=== PATIENT | male | born 2000 | race Caucasian/White ===

== ENCOUNTER 2024-01-09 21:47 | Emergency (ER) | payer OTHER ==
--- NOTE | 2024-01-10 00:23 | ER ---
Nurse's Notes [facility] Name: Jaden Munoz Age: 23 yrs Sex: Male : 2000 Arrival Date: 01/09/2024 Time: 21:47 Bed 18 Private MD: Diagnosis: Contusion of right elbow Presentation: 01/08 22:15 Chief complaint: Patient states: right forearm/elbow pain of 8 with abrasion,onset pf1 2030, S/P fall when jumping onto a wooden platform, then fell back onto right arm. Patient denies any head injury. Coronavirus screen: Vaccine status: Patient reports receiving the 2nd dose of the covid vaccine. Client denies travel out of the [place] in the last 14 days. At this time, the client does not indicate any symptoms associated with coronavirus-19. Ebola Screen: Patient negative for fever greater than or equal to 101.5 degrees Fahrenheit, and additional compatible Ebola Virus Disease symptoms. Initial Sepsis Screen: Does the patient meet any 2 criteria? No. Patient's initial sepsis screen is negative. Does the patient have a suspected source of infection? No. Patient's initial sepsis screen is negative. Risk Assessment: Do you want to hurt yourself or someone else? Patient reports no desire to harm self or others. Onset of symptoms was January 09, 2024 at 20:30. 22:15 Method Of Arrival: Ambulatory pf1 22:15 Acuity: AARON 4 pf1 Triage Assessment: 22:22 General: Appears in no apparent distress. comfortable, well groomed, well developed, pf1 Behavior is calm, cooperative, appropriate for age, quiet. Pain: Complains of pain in right arm. Derm: Reports abrasion to right forearm. Musculoskeletal: Reports pain in right arm. 23:00 Injury Description: Abrasion sustained to right arm. jw7 Historical: - Allergies: 22:20 No Known Allergies; pf1 - PMHx: 22:20 Heart murmur; pf1 - PSHx: 22:20 None; pf1 - Immunization history:: Adult Immunizations up to date, Client reports receiving the 2nd dose of the Covid vaccine, Last tetanus immunization: < 5 years ago Flu vaccine is not up to date. - Infectious Disease History:: Denies. - Social history:: Smoking status: Patient denies any tobacco usage or history of. Patient uses alcohol, occasionally. Patient/guardian denies using street drugs. - Family history:: not pertinent. Screenin:00 [facility] ED Fall Risk Assessment (Adult) History of falling in the last 3 months, jw7 including since admission No falls in past 3 months (0 pts) Confusion or Disorientation No (0 pts) Intoxicated or Sedated No (0 pts) Impaired Gait No (0 pts) Mobility Assist Device Used No (0 pt) Altered Elimination No (0 pt) Score/Fall Risk Level 0 - 2 = Low Risk Oriented to surroundings, Maintained a safe environment, Educated pt \T\ family on fall prevention, incl call for assistance when getting out of bed. Abuse screen: Denies threats or abuse. Denies injuries from another. Nutritional screening: No deficits noted. Tuberculosis screening: No symptoms or risk factors identified. Assessment: 23:00 General: Appears in no apparent distress. comfortable, Behavior is calm, cooperative. jw7 23:00 Pain: Complains of pain in right arm Pain does not radiate. Pain currently is 5 out of jw7 10 on a pain scale. Quality of pain is described as throbbing, Pain began suddenly, Is continuous. Neuro: Level of Consciousness is awake, alert, obeys commands, Oriented to person, place, time, situation. Cardiovascular: Heart tones S1 S2 present Capillary refill < 3 seconds Clubbing of nail beds is absent JVD is absent Patient's skin is warm and dry. Respiratory: Airway is patent Trachea midline Respiratory effort is even, unlabored, Respiratory pattern is regular, symmetrical. GI: Abdomen is flat, non-distended, Bowel sounds present X 4 quads. Abd is soft and non tender X 4 quads. : No deficits noted. No signs and/or symptoms were reported regarding the genitourinary system. EENT: No deficits noted. No signs and/or symptoms were reported regarding the EENT system. Derm: Skin is healthy with good turgor, Skin is dry, Skin is normal, Skin temperature is warm Wound noted Other: abrasion noted to right elbow. Musculoskeletal: Circulation, motion, and sensation intact. Range of motion: intact in all extremities. 01/09 00:32 Reassessment: Patient appears in no apparent distress at this time. No changes from jw7 previously documented assessment. Patient and/or family updated on plan of care and expected duration. Pain level reassessed. Patient is alert, oriented x 3, equal unlabored respirations, skin warm/dry/pink. Vital Signs: 01/08 22:15 BP 133 / 76; Pulse 73; Resp 16; Temp 97.9; Pulse Ox 99% on R/A; Weight 80.74 kg; Height pf1 5 ft. 10 in. ; Pain 04/10; 01/09 00:00 BP 125 / 70; Pulse 50; Resp 16 S; Pulse Ox 98% on R/A; jw7 00:32 BP 120 / 68; Pulse 51; Resp 16 S; Pulse Ox 99% on R/A; jw7 01/08 22:15 Body Mass Index 25.54 (80.74 kg, 177.8 cm) pf1 01/08 22:15 Pain Scale: Adult pf1 ED Course: 01/08 21:52 Patient arrived in ED. gm2 21:53 Maximino Negro MD is Attending Physician. rt 22:20 Triage completed. pf1 22:22 Arm band placed on right wrist. pf1 22:52 Eloisa Calderón RN is Primary Nurse. jw7 23:00 Patient has correct armband on for positive identification. Bed in low position. Call jw7 light in reach. Provided Education on: Use of Call Light. 23:28 Elbow Right 3 View XRAY In Process Unspecified. EDMS 01/09 00:33 No provider procedures requiring assistance completed. Patient did not have IV access jw7 during this emergency room visit. Administered Medications: No medications were administered Medication: 00:33 VIS not applicable for this client. jw7 Outcome: 00:22 Discharge ordered by . rt 00:33 Discharged to home ambulatory, jw7 00:33 Condition: stable 00:33 Discharge instructions given to patient, Instructed on discharge instructions, follow up and referral plans. Demonstrated understanding of instructions, follow-up care, 00:33 Patient left the ED. jw7 Signatures: Dispatcher [employer] EDKS Eloisa Calderón RN RN jw7 Maximino Negro MD MD rt Monica aPulino RN RN pf1 Malathi Edmondson gm2
--- NOTE | 2024-01-10 00:23 | EDPHYS ---
Physician Documentation [facility] Name: Jaden Munoz Age: 23 yrs Sex: Male : 2000 Arrival Date: 01/09/2024 Time: 21:47 Bed 18 Private MD: ED Physician Maximino Negro HPI: 01/09 02:06 This 23 yrs old Male presents to ER via Ambulatory with complaints of Elbow Injury. rt 02:06 Patient presents to the ED with an injury to the right elbow. Patient states that he rt jumped, fell backwards, having direct blow onto the elbow. Does have an abrasion at that area, reports mild swelling, tenderness. Denies other injury, acute complaints, symptoms are moderate in severity, no other aggravating or alleviating factors.. Historical: - Allergies: 01/08 22:20 No Known Allergies; pf1 - PMHx: 22:20 Heart murmur; pf1 - PSHx: 22:20 None; pf1 - Immunization history:: Adult Immunizations up to date, Client reports receiving the 2nd dose of the Covid vaccine, Last tetanus immunization: < 5 years ago Flu vaccine is not up to date. - Infectious Disease History:: Denies. - Social history:: Smoking status: Patient denies any tobacco usage or history of. Patient uses alcohol, occasionally. Patient/guardian denies using street drugs. - Family history:: not pertinent. ROS: 01/09 02:06 Constitutional: Negative for fever, chills, and weight loss, Neck: Negative for injury, rt pain, and swelling, Cardiovascular: Negative for chest pain, palpitations, and edema, Respiratory: Negative for shortness of breath, cough, wheezing, and pleuritic chest pain, Abdomen/GI: Negative for abdominal pain, nausea, vomiting, diarrhea, and constipation, Skin: Negative for injury, rash, and discoloration, Neuro: Negative for headache, weakness, numbness, tingling, and seizure, MS/extremity: Positive for abrasion, contusion, pain, Exam: 02:06 Constitutional: This is a well developed, well nourished patient who is awake, alert, rt and in no acute distress. Head/Face: Normocephalic, atraumatic. Chest/axilla: Normal chest wall appearance and motion. Nontender with no deformity. No lesions are appreciated. Cardiovascular: Regular rate and rhythm with a normal S1 and S2. No gallops, murmurs, or rubs. Normal PMI, no JVD. No pulse deficits. Respiratory: Lungs have equal breath sounds bilaterally, clear to auscultation and percussion. No rales, rhonchi or wheezes noted. No increased work of breathing, no retractions or nasal flaring. Abdomen/GI: Soft, non-tender, with normal bowel sounds. No distension or tympany. No guarding or rebound. No evidence of tenderness throughout. Skin: Warm, dry with normal turgor. Normal color with no rashes, no lesions, and no evidence of cellulitis. Neuro: Awake and alert, GCS 15, oriented to person, place, time, and situation. Cranial nerves II-XII grossly intact. Motor strength 5/5 in all extremities. Sensory grossly intact. Cerebellar exam normal. Normal gait. 02:06 Musculoskeletal/extremity: Mild bruising, abrasion noted to the right proximal forearm, full range of motion of the elbow. Pulses, motor, sensation intact. Vital Signs: 01/08 22:15 BP 133 / 76; Pulse 73; Resp 16; Temp 97.9; Pulse Ox 99% on R/A; Weight 80.74 kg; Height pf1 5 ft. 10 in. ; Pain 04/10; 01/09 00:00 BP 125 / 70; Pulse 50; Resp 16 S; Pulse Ox 98% on R/A; jw7 00:32 BP 120 / 68; Pulse 51; Resp 16 S; Pulse Ox 99% on R/A; jw7 01/08 22:15 Body Mass Index 25.54 (80.74 kg, 177.8 cm) pf1 01/08 22:15 Pain Scale: Adult pf1 MDM: 01/08 22:57 Patient medically screened. rt 01/09 02:06 Differential diagnosis: Fracture, contusion, abrasion. Data reviewed: vital signs, rt nurses notes, radiologic studies. Independent interpretation of the following test(s) in the Emergency Department X-Ray: My interpretation is No fracture seen on interpretation of x-ray images. Counseling: I had a detailed discussion with the patient and/or guardian regarding the historical points, exam findings, and any diagnostic results supporting the discharge/admit diagnosis, radiology results, the need for outpatient follow up. 01/08 23:03 Order name: Elbow Right 3 View XRAY rt Administered Medications: No medications were administered Disposition Summary: 01/10/24 00:22 Discharge Ordered Notes: Location: Home rt Problem: new rt Symptoms: have improved rt Condition: Stable rt Diagnosis - Contusion of right elbow rt Followup: rt - With: Private Physician - When: 5 - 6 days - Reason: Discharge Instructions: - Discharge Summary Sheet rt - Contusion rt Forms: - Medication Reconciliation Form rt - Antibiotic Education rt - Prescription Opioid Use rt - Patient Portal Instructions rt - Leadership Thank You Letter rt Signatures: Dispatcher [employer] Maximino Reyez MD MD rt Monica Paulino RN RN pf1
[2024-01-10 00:51] VITALS: BP 120/68; TEMP 97.9; O2SAT 99
--- NOTE | 2024-01-12 11:40 | RAD REPORT ---
EXAM DESCRIPTION: Elbow Right 3 Views CLINICAL HISTORY: PAIN COMPARISON: None FINDINGS: Three x-ray views of the right elbow were submitted. There is no acute fracture or dislo cation. Bone mineralization is within normal limits. There is no radiopaque foreign body material. IMPRESSION: No acute fracture or dislocation. Electronically signed by: Desean Aragon MD 01/09/2024 11:43 PM CDT Due to temporary technical issues with the PACS/Fluency reporting system, reports are being signed by the in house radiologist without review as a courtesy to ensure prompt reporting. The interpreting r adiologist is fully responsible for the content of the report.
== END 2024-01-10 00:33 | disposition home or self-care (01) ==
LOC: ER 21:47
DX: S50.01XA Contusion of right elbow, initial encounter (principal)
CPT/HCPCS: 99283